=== PATIENT | female | born 1960 | race Caucasian/White ===

== ENCOUNTER → 2020-01-12 11:16 | Outpatient (CLI) | payer OTHER, SELFPAY ==
[2020-01-12 11:47] LABS: Basophils # 0.1 K/mm3 (0-0.2); Eosinophils # 0.1 K/mm3 (0.0-0.4); Hematocrit 50.1 % (37.0-47.0); Hemoglobin 16.6 g/dL (12.2-16.2); Lymphocytes # 3.1 K/mm3 (0.7-4.5); Lymphocytes % 32.6 % (10-50); Mean Corpuscular HGB Conc 33.2 g/dL (31.8-35.4); Mean Corpuscular Hemoglobin 32.8 pg (27.0-31.2); Mean Platelet Volume 7.4 fl (7.4-10.4); Monocytes # 0.5 K/mm3 (0.1-1.0); Monocytes % 5.4 % (1.7-9.3); Neutrophils # 5.7 K/mm3 (1.8-7.8); Neutrophils % 60.1 % (37.0-80.0); Platelet Count 344 K/mm3 (142-424); Red Blood Count 5.06 M/mm3 (4.20-5.40); Red Cell Distribution Width 13.1 % (11.5-17.5); White Blood Count 9.5 K/mm3 (4.8-10.8)
[2020-01-12 14:12] LABS: Chloride 103 mmol/L (98-107)
[2020-01-12 14:13] LABS: Sodium 142 mmol/L (136-145)
[2020-01-12 14:15] LABS: Blood Urea Nitrogen 16 mg/dl (7-17); Estimated Glomerular Filt Rate 102 ml/min (>60); GFR (African American) 123 ML/MIN (>60)
[2020-01-12 14:16] LABS: Carbon Dioxide 29 mmol/L (22.0-30.0); Glucose 125 mg/dl (74-100)
[2020-01-12 15:48] LABS: Coronavirus 19 IgG Antibody Negative (Negative); Coronavirus 19 IgM Antibody Negative (Negative)
== END ==
PROVIDERS: Visit Provider Internal Medicine
DX: Z01.810 Encounter for preprocedural cardiovascular examination (principal); I20.9 Angina pectoris, unspecified
CPT/HCPCS: 36415; 80048; 85025; 86328

== ENCOUNTER 2020-01-15 08:57 | Day surgery (SDC) | payer OTHER, SELFPAY ==
[2020-01-15] VITALS (13 sets, daily range): BP systolic 96–148; BP diastolic 53–72; PULSE 57–71; RESP 16; O2SAT 93–98; BMI 26.2
--- NOTE | 2020-01-15 07:28 | IR_ITS ---
APPROVED REPORT Patient Location: Outpatient PROCEDURES Left heart catheterization Left ventriculogram Selective coronary angiogram Drug-eluting stent deployment to the ostial proximal LAD INDICATION Coronary artery disease, Angina pectoris Informed consent was obtained prior to the procedure. COMPLICATIONS none Estimated Blood Loss: less than 10 mls TECHNIQUE One percent lidocaine used to anesthetize the right anterior aspect of the wrist. The right radial artery was accessed via the Seldinger technique. A 6 Maltese sheath was placed in the right radial artery. 2.5 mg of verapamil, 800 mcg of nitroglycerin, 1mg Lidocaine and 5000 U Heparin were given through the arterial sheath. The Keradermpa catheter was also used to perform left heart catheterization, left ventriculogram and selective coronary angiogram. At the end of the diagnostic procedure therapeutic heparin was administered giving a therapeutic ACT. The same catheter was used to intubate the left main artery and a Choice PT extra-support wire was placed distally. A 3 mm x 34 mm resolute andres stent was initially deployed at 12 latanya reducing the stenosis. A 3 mm x 8 mm noncompliant balloon was deployed at 20 and then 24 latanya in the ostial segment of the LAD stent. The balloon was also deployed at 20 latanya in the proximal LAD stenosis adjacent to the first diagonal artery. BRAN-3 flow was present before and after the procedure. At the end of the procedure the apparatus was removed the sheath was removed good hemostasis was achieved using TR banding patient was transferred to the postop holding area in stable condition ANGIOGRAPHIC RESULTS The left main artery Normal The left anterior descending artery Has an ostial 40 to 50% stenosis followed by a proximal 80% stenosis followed by mid vessel 20 to 30% stenosis along a tortuous bend The circumflex artery Is a large dominant vessel with a proximal hazy 30 to 40% stenosis followed by 20% stenosis in a large first obtuse marginal artery The right coronary artery Is a small nondominant vessel with a proximal 80 to 90% stenosis at a 1.5 mm vessel. The CHIN ventriculogram reveals Normal 60% The left ventricular end-diastolic pressure 10 mmHg IMPRESSION Moderate ostial left left anterior descending artery stenosis with severe proximal LAD stenosis Accessible stenting of the ostial LAD extending into the proximal to mid LAD in a contiguous manner with 1 drug-eluting stent Normal ejection fraction Normal left ventricular end-diastolic pressure Distant moderate stenosis in a large dominant circumflex artery Persistent severe stenosis in a small nondominant right coronary artery too small for percutaneous stenting PLAN 1. Dual antiplatelet therapy 2. Medical management for the circumflex artery stenosis and right coronary artery 3. Absolute cessation of tobacco products 4. LDL less than 55 to be achieved with high intensity statin 5. Cardiac rehabilitation Electronically signed by : Scott Kate, 01/15/2020 11:07:20
[2020-01-15 12:30] LABS: CATHL Activated Clotting Time 281 SEC (74-125)
--- NOTE | 2020-01-15 14:34 | HMH.PHACLD ---
Ariella Ortiz has received discharge medication counseling on the following medications: PATIENT IS CURRENTLY TAKING BISOPROLOL 10 MG DAILY, ATORVASTATIN 20 MG HS, LISINOPRIL/HCTZ 20/25 MG DAILY, ASPIRIN 81 MG DAILY, CLOPIDOGREL 75 MG DAILY. HOLDING METFORMIN [id number].
== END 2020-01-15 15:03 | disposition home or self-care (01) ==
LOC: CATHLAB 08:59
PROVIDERS: PCP Family Medicine; Visit Provider Internal Medicine
DX: I25.118 Atherosclerotic heart disease of native coronary artery with other forms of angina pectoris (principal); I10 Essential (primary) hypertension; Z72.0 Tobacco use; Z79.01 Long term (current) use of anticoagulants; Z79.84 Long term (current) use of oral hypoglycemic drugs; Z79.82 Long term (current) use of aspirin; Z79.899 Other long term (current) drug therapy; Z88.0 Allergy status to penicillin; Z88.2 Allergy status to sulfonamides; Z88.8 Allergy status to other drugs, medicaments and biological substances; E11.9 Type 2 diabetes mellitus without complications
CPT/HCPCS: 85347; 92928; 93458; 99152; 99153; C1725; C1769; C1876; C9600; J1644; Q9967

== ENCOUNTER → 2020-01-23 10:44 | Outpatient (CLI) | payer OTHER, SELFPAY ==
[2020-01-23 11:35] LABS: Basophils # 0.1 K/mm3 (0-0.2); Basophils % 0.8 % (0.1-2.0); Eosinophils # 0.2 K/mm3 (0.0-0.4); Eosinophils % 1.8 % (0.1-12.0); Hematocrit 48.2 % (37.0-47.0); Hemoglobin 15.3 g/dL (12.2-16.2); Lymphocytes # 2.3 K/mm3 (0.7-4.5); Lymphocytes % 29.4 % (10-50); Mean Corpuscular HGB Conc 31.8 g/dL (31.8-35.4); Mean Corpuscular Hemoglobin 31.7 pg (27.0-31.2); Mean Corpuscular Volume 99.8 fl (81-99); Mean Platelet Volume 7.3 fl (7.4-10.4); Monocytes # 0.5 K/mm3 (0.1-1.0); Monocytes % 5.6 % (1.7-9.3); Neutrophils # 4.9 K/mm3 (1.8-7.8); Neutrophils % 62.3 % (37.0-80.0); Platelet Count 329 K/mm3 (142-424); Red Blood Count 4.83 M/mm3 (4.20-5.40); Red Cell Distribution Width 12.7 % (11.5-17.5); White Blood Count 7.9 K/mm3 (4.8-10.8)
[2020-01-23 13:14] LABS: Chloride 101 mmol/L (98-107); Potassium 3.8 mmoL/L (3.5-5.1); Sodium 139 mmol/L (136-145)
[2020-01-23 13:17] LABS: Anion Gap 11.8 mEq/L (5-15); Blood Urea Nitrogen 13 mg/dl (7-17); Calcium 9.9 mg/dl (8.4-10.2); Carbon Dioxide 30 mmol/L (22.0-30.0); Estimated Glomerular Filt Rate 73 ml/min (>60); GFR (African American) 89 ML/MIN (>60); Glucose 180 mg/dl (74-100)
== END ==
PROVIDERS: Visit Provider Internal Medicine
DX: Z95.5 Presence of coronary angioplasty implant and graft (principal)
CPT/HCPCS: 36415; 80048; 85025

== ENCOUNTER 2020-01-23 12:38 | Outpatient (RCR) | payer MEDICARE, SELFPAY | END 2020-02-27 15:19 | disposition home or self-care (01) | LOC: PT 12:38 | PROVIDERS: Visit Provider Internal Medicine | DX: Z95.5 Presence of coronary angioplasty implant and graft (principal) ==

== ENCOUNTER → 2020-01-26 13:38 | Outpatient (CLI) | payer MEDICARE, SELFPAY | PROVIDERS: PCP Family Medicine; Visit Provider Urology | DX: E78.5 Hyperlipidemia, unspecified (principal); F17.200 Nicotine dependence, unspecified, uncomplicated; I10 Essential (primary) hypertension; I20.9 Angina pectoris, unspecified; R06.00 Dyspnea, unspecified | CPT/HCPCS: 93306 ==

== ENCOUNTER → 2021-04-16 14:34 | Outpatient (CLI) | payer MEDICARE, SELFPAY ==
--- NOTE | 2021-04-16 14:42 | XR_ITS ---
FINAL REPORT CLINICAL HISTORY: typical angina FINDINGS: Two views of the chest were obtained. The heart size and pulmonary vascularity are within normal limits. The mediastinum is normal. There is mild linear scarring in the right mid lung. There is no pneumothorax. The bony thorax is intact. IMPRESSION: No active cardiopulmonary disease. Reviewed, Interpreted and Dictated by Glen Dey III, MD Transcribed by Rolly Vang Authenticated by Glen Dey III, MD on 04/16/2021 03:50:[address] [facility]
[2021-04-16 15:36] LABS: Basophils # 0.1 K/mm3 (0-0.2); Basophils % 1.3 % (0.1-2.0); Eosinophils # 0.1 K/mm3 (0.0-0.4); Eosinophils % 1.4 % (0.1-12.0); Hematocrit 48.6 % (37.0-47.0); Hemoglobin 15.4 g/dL (12.2-16.2); Lymphocytes # 2.7 K/mm3 (0.7-4.5); Lymphocytes % 30.5 % (10-50); Mean Corpuscular HGB Conc 31.7 g/dL (31.8-35.4); Mean Corpuscular Hemoglobin 30.8 pg (27.0-31.2); Mean Corpuscular Volume 96.9 fl (81-99); Mean Platelet Volume 7.6 fl (7.4-10.4); Monocytes # 0.4 K/mm3 (0.1-1.0); Monocytes % 4.1 % (1.7-9.3); Neutrophils # 5.4 K/mm3 (1.8-7.8); Neutrophils % 62.6 % (37.0-80.0); Platelet Count 345 K/mm3 (142-424); Red Blood Count 5.01 M/mm3 (4.20-5.40); Red Cell Distribution Width 13.4 % (11.5-17.5); White Blood Count 8.7 K/mm3 (4.8-10.8)
[2021-04-16 16:05] LABS: Chloride 99 mmol/L (98-107); Potassium 3.7 mmoL/L (3.5-5.1); Sodium 135 mmol/L (136-145)
[2021-04-16 16:07] LABS: Bilirubin,Unconjugated 0.1 mg/dL (0.0-1.1); Blood Urea Nitrogen 15 mg/dl (7-17); Estimated Glomerular Filt Rate 85 ml/min (>60); GFR (African American) 103 ML/MIN (>60)
[2021-04-16 16:08] LABS: Alanine Aminotransferase 30 U/L (12-78); Albumin Level 4.5 g/dl (3.5-5.0); Alkaline Phosphatase 70 U/L (38-126); Anion Gap 10.7 mEq/L (5-15); Aspartate Amino Transferase 33 U/L (14-36); Bilirubin,Direct 0.3 mg/dl (0.0-0.4); Bilirubin,Indirect 0.1 mg/dL (0.0-0.9); Bilirubin,Total 0.4 mg/dl (0.2-1.3); Calcium 8.9 mg/dl (8.4-10.2); Carbon Dioxide 29 mmol/L (22.0-30.0); Chol/HDL Ratio 4.1 (1-3.5); Cholesterol 195 mg/dl (140-200); Glucose 229 mg/dl (74-100); HDL Cholesterol 47 mg/dl (40-60); Triglycerides 226 mg/dl (30-150); VLDL Cholesterol 45 mg/dL (0-40)
[2021-04-16 16:19] LABS: Direct LDL Cholesterol 126.15 mg/dL (100-129)
[2021-04-16 16:24] LABS: Free T4 (Free Thyroxine) 0.94 ng/dl (0.78-2.19)
== END ==
PROVIDERS: PCP Family Medicine; Visit Provider Urology
DX: E78.5 Hyperlipidemia, unspecified (principal); F17.200 Nicotine dependence, unspecified, uncomplicated; I10 Essential (primary) hypertension; I25.118 Atherosclerotic heart disease of native coronary artery with other forms of angina pectoris; Z95.5 Presence of coronary angioplasty implant and graft
CPT/HCPCS: 36415; 71046; 80048; 80061; 80076; 84439; 84443; 85025

== ENCOUNTER → 2021-04-30 06:49 | Outpatient (CLI) | payer MEDICARE, SELFPAY ==
--- NOTE | 2021-04-30 | CA_ITS ---
APPROVED REPORT Exam: Exercise Treadmill Technologist: Mandy Palacios, Ht: 5 ft 2 in Wt: 158 lbs BSA: 1.73 m2 HR: 56 bpm BP: 125/72 mmHg Rhythm: NSR, normal Medical History Medical History: HTN, Hyperlipidemia Medications: Amlodipine,,,,, Aspirin,,,,, Hydrocodone,,,,, Trazadone,,,,, Lipitor,,,,, Protonix,,,,, CloPIdogrel,,,,, CloPIdogrel,,,,, BisOPROLOL,,,,, Nitroglycerin,,,,, PEPcid,,,,, Lisinopri/HCTZ,,,,, Cardiac Risk Factors: HTN, Hyperlipidemia, Smoking Stress Test Details Test: Manual Treadmill HR Resting HR: 75 bpm Max Heart Rate (APMHR): 159.031985 bpm Max HR Achieved: 132 bpm Target HR (85% APMHR): 135.954991 bpm % of APMHR: 83.02 Recovery HR: 113 bpm BP Resting BP: 146/67 mmHg Max BP: 194/80 mmHg Recovery BP: 147.0/70.0 mmHg ECG Resting ECG: NSR, normal Clinical Exercise duration: 07:31 min Highest Stage Achieved: Exercise capacity: 6.5 METs Stress ECG Conclusion During stress patient experinced no CP. No arrhymthias noted. Allowing for motion artifact the ST response to exercise is within normal. Switched to manual protocol after 3 minutes of stage 1. Walked total of 7:31 with max speed of 2.5mph max grade of 12%. Normal GXT of HR achieved, 83% of PM. Myoview images reported separately. Test Summary RECOVERY 05:18 0.0 0.0 77 . 118/ 68 . . REST 04:44 0.0 0.0 75 . 146/ 67 . . Stage 1 01:00 10.0 1.7 101 . . . . Stage 1 02:00 10.0 1.7 110 . . . . Stage 1 . . . . . . . Stage held Stage 1 03:00 10.0 1.7 116 . . . . Stage 1 . . . . . . . Protocol changed to Manual Treadmill Stage 1 04:00 12.0 2.0 118 . 194/ 80 . . Stage 1 05:00 12.0 2.2 122 . 194/ 80 . . Stage 1 06:00 12.0 2.3 130 . 194/ 80 . . Stage 1 . . . . . . . Cardiolite injected Stage 1 07:00 12.0 2.5 130 . 194/ 80 . . Stage 1 . . . . . . . Stage resumed Stage 1 07:31 12.0 2.5 132 . 194/ 80 . Stop exercise at 07:31 RECOVERY 01:00 0.0 0.0 113 . . . . RECOVERY 02:00 0.0 0.0 86 . . . . RECOVERY 03:00 0.0 0.0 81 . 147/ 70 . . RECOVERY 04:00 0.0 0.0 78 . 138/ 66 . . RECOVERY 05:00 0.0 0.0 76 . 118/ 68 . . RECOVERY 05:18 0.0 0.0 77 . 118/ 68 . . Electronically signed by : Pako Raman MD 04/30/2021 12:37:28
--- NOTE | 2021-04-30 06:50 | CA_ITS ---
APPROVED REPORT EXAM: Comprehensive 2D, Doppler, and color-flow Echocardiogram Car Refinisher: Laura Breaux RT(R) Ht: 5 ft 2 in Wt: 158lbs BSA: 1.73 BP: 138/63 mmHg Indications: CP, smoker, htn, DM, hyperlipidemia, CAD 2D Dimensions LVOT 1.82 cm (M/F) 1.5-2.5 LA Volume 28.00 mL LA Volume Index 16.18 mL/m2 (M/F) 16-34 M-Mode Dimensions RVDd 2.22 cm (0.9-2.6) LA Diam 2.91 cm (1.9-4.0) LVDd 3.87 cm (3.5-5.7) Ao Diam 2.37 cm (2.0-3.7) LVDs 2.86 cm (3.5-5.7) IVSd 0.72 cm (0.6-1.1) PWd 0.90 cm (0.6-1.1) EF (Teich) 51.90% FS 26.10% EDV (Teich) 64.70 mL ESV (Teich) 31.10 mL LV Diastology E Decel Time 273.00 (160-240 msec) E/A Ratio 0.8 MED E' 6.70 (< 7 cm/sec) E'/MED E' Ratio 11.79 (>14) LAT E' 6.80 (<10 cm/sec) E/LAT E' Ratio 11.62 (>14) Mitral Valve MV E Max Delio. 79.00 (40-130 cm/s) MV A Velocity 99.00 (40-130 cm/s) E/A Ratio 0.80 MV Decel. Time 273.00 (160-240 ms) MV PHT 80.00 ms Left Ventricle Left atrium is mildly enlarged, left ventricle is normal size, mild concentric left ventricular hypertrophy, visually estimated ejection fraction 55% with no regional wall motion abnormality, grade 1 diastolic dysfunction seen without tissue Doppler evidence of raise left atrial pressure. Right Ventricle Right atrium and right ventricle are normal size and contractility. Aortic Valve Aortic valve is minimally thickened and fibrosed, there is no aortic stenosis or aortic insufficiency. Mitral Valve Mitral valve grossly normal, there is trace mitral regurgitation. Tricuspid Valve Tricuspid valve grossly normal, there is trace tricuspid regurgitation, tricuspid regurgitation jet velocity is inadequate for calculation of the right ventricular systolic pressure. Pulmonic Valve Pulmonic valve is poorly visualized. Great Vessels Aortic root is normal size. N Inferior vena cava is normal size with normal inspiratory collapse. Pericardium No significant pericardial effusion noted. Conclusion 1. Normal left ventricular size, mild concentric left ventricular hypertrophy, visually estimated ejection fraction 55% with no regional wall motion abnormality, grade 1 diastolic dysfunction seen without tissue Doppler evidence of raise left atrial pressure. 2. Trace mitral and tricuspid regurgitation. 3. No significant pericardial effusion noted. 4. Inferior vena cava normal size with normal inspiratory collapse. Electronically signed by : Pako Raman MD 04/30/2021 19:34:23
--- NOTE | 2021-04-30 06:53 | NM_ITS ---
APPROVED REPORT Exam: Nuclear Stress Test Indication: Chest pain, SOB, CAD, HTN, DM, High cholesterol, Tobacco use, Family history Patient Location: Outpatient Stress Tech: Mandy Palacios [place] Tech:Liset Grimm, ARRT, RT (R)(N) Ht: 5 ft 2 in Wt: 158 lbs Bra Size: 38DD HR: 75 bpm BP: 146/67 mmHg BSA: 1.73 m2 BMI: 28.8 History: Chest pain, SOB, CAD, HTN, DM, High cholesterol, Tobacco use, Family history Procedure: Patient exercised on Paul protocol 7:31 minutes and sec, resting heart rate 75 bpm, resting blood pressure 146/67 mmHg, with exercise maximum heart rate achived was 132 bpm which is 83 % of the maximum predicted heart rate and blood pressure was 194/80 mmHg. Test was stopped due to SOA and leg fatigue. Patient denied any complaint of chest pain. Patient has Adequate exercise capacity, achieved 6.5 METs of workload on treadmill, the blood pressure response to exercise was Normal. Electrocardiogram Resting electrocardiogram showed sinus rhythm, nonspecific ST-T changes, with exercise there is less than 1.[address] segment depression from the baseline EKG, patient did not achieve the target heart rate. The EKG portion of the exercise Myoview was nondiagnostic. Cardiac Stress and Resting SPECT Images: Cardiac Stress and Resting SPECT images were obtained using technetium 99m Myoview 29.7 mCi stress and 10.32 mCi at rest. Gated SPECT for analysis of segmental wall motion and calculation of the ejection fraction also done. Cardiac stress and resting SPECT images show mild fixed defect in the anterior wall with normal contractility on the gated SPECT is likely secondary to soft tissue attenuation, no reversible ischemia seen. Compared right ejection fraction is 61% with no regional wall motion abnormality, right ventricle is normal size and contractility. Conclusion: 1. The EKG portion of the exercise Myoview is nondiagnostic, patient has adequate exercise capacity achieved 6.5 METs of workload on treadmill, the blood pressure response to exercise was adequate, there was no exercise-induced chest discomfort. 2. No scintigraphic evidence of reversible ischemia seen, compared to ejection fraction 61% with no regional wall motion abnormality, right ventricle is normal size and contractility. 3. Normal myocardial perfusion imaging at submaximal heart rate. Electronically signed by : Pako Raman MD 04/30/2021 17:43:14
--- NOTE | 2021-04-30 09:08 | HMH.ITSHM ---
Current Home Medications as stated by this patient Ariella Ortiz or containers sales representative. []TRAZODONE PANTOPRAZOLE NITRO LISINOPRIL HYDROCODONE FAMOTIDINE CLOPIDOGREL BISOPROLOL ATORVASTATIN ASA AMLODIPINE
== END ==
PROVIDERS: PCP Family Medicine; Visit Provider Urology
DX: E78.5 Hyperlipidemia, unspecified (principal); F17.200 Nicotine dependence, unspecified, uncomplicated; I10 Essential (primary) hypertension; I25.118 Atherosclerotic heart disease of native coronary artery with other forms of angina pectoris; Z95.5 Presence of coronary angioplasty implant and graft
CPT/HCPCS: 78452; 93017; 93306; A9502

== ENCOUNTER → 2022-03-24 14:41 | Outpatient (POV) | payer MEDICARE, SELFPAY | PROVIDERS: Visit Provider Dermatology | DX: Z00.00 Encounter for general adult medical examination without abnormal findings (principal) ==